=== PATIENT | male | born 1995 | race Caucasian/White ===

== ENCOUNTER → 2020-07-03 09:11 | Outpatient (CLI) | payer OTHER, SELFPAY ==
--- NOTE | 2020-07-03 09:18 | RAD_ITS ---
STUDY: X-RAY - LEFT SHOULDER REASON FOR EXAM: Male, 25 years old. PREVIOUS , BILATERAL SHOULDER AND LOWER THORACIC PAIN, NO KNOWN INJURY TECHNIQUE: 4 view(s) of the shoulder. COMPARISON: None. FINDINGS: Normal glenohumeral articulation. Normal acromioclavicular joint. Normal acromion. Normal humeral head and visualized proximal humerus. The soft tissue structures are unremarkable. Normal visualized pulmonary apex. RAD/Shoulder min 2 Views IMPRESSION: Normal x-ray examination of the shoulder. Electronically Signed: Keisha Allen MD at 23:53 EST Tel , Service support ,
--- NOTE | 2020-07-03 09:19 | RAD_ITS ---
STUDY: X-RAY - RIGHT SHOULDER REASON FOR EXAM: Male, 25 years old. PREVIOUS , BILATERAL SHOULDER AND LOWER THORACIC PAIN, NO KNOWN INJURY TECHNIQUE: 4 view(s) of the shoulder. COMPARISON: None. FINDINGS: Normal glenohumeral articulation. Normal acromioclavicular joint. Normal acromion. Normal humeral head and visualized proximal humerus. The soft tissue structures are unremarkable. Normal visualized pulmonary apex. RAD/Shoulder min 2 Views IMPRESSION: Normal x-ray examination of the shoulder. Electronically Signed: Keisha Allen MD at 23:52 EST Tel , Service support ,
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
== END ==
PROVIDERS: Referring Provider Orthopaedic Surgery; Visit Provider Orthopaedic Surgery
DX: M13.80 Other specified arthritis, unspecified site (principal)
CPT/HCPCS: 72072; 73030